=== PATIENT | female | born 1980 | race Caucasian/White ===

== ENCOUNTER 2016-08-10 01:14 | Emergency (ER) | payer OTHER ==
--- NOTE | 2016-08-10 05:10 | ED MAR SUMMARY ---
..... Medication Administration Record [facility] [address] [place], [place] [id number] Patient: LUIS ANTONIO Homar Visit ID: [id number] 35y, F Weight: 63.5 kg Height/Length: 64 in BMI: 24 ALLERGIES: No Known Drug Allergy
--- NOTE | 2016-08-10 05:10 | ED NURSING NOTES ---
Clinical Report - Nurses [facility] [address] [place] [address] 08/10/2016 1:14 Patient: LUIS ANTONIO TRIAGE Triage time 01:Aug 10 2016. Acuity: LEVEL 4. Chief Complaint: laceration. --01:32 Souleymane Bhatia R.N. 01:29 08/10/16. BP: 113/75. HR: 79. RR: 18. O2 saturation: 100%. Temp: 98.5 F. Pain level now 0/10. --01:32 Souleymane Bhatia R.N. Weight: 63.5 kg stated. Height/Length: 64 inches Per Patient. BMI: 24. --01:30 Souleymane Bhatia R.N. Medications Iron Oral. --01:30 Souleymane Bhatia R.N. Allergies No Known Drug Allergy. --01:30 Souleymane Bhatia R.N. History ( Pt was cutting" food" with a knife slipped and cut wrist. No suicidal ideation, tetanus is up to date.). Reported as (R wrist). PAST MEDICAL HX: Immunizations: up-to-date. SOCIAL HX: Light tobacco smoker. No alcohol use or drug use. --01:32 Souleymane Bhatia R.N. ADDITIONAL SURGERIES: Tubal Ligation. --01:31 Souleymane Bhatia R.N. Interventions ID band on patient. To treatment room. --01:32 Souleymane Bhatia R.N. DISPOSITION / DISCHARGE Departure time: 0253. No learning barriers present. Discharge instructions provided and reviewed with the patient. Patient verbalized understanding. Written instructions provided in Somali. The patient was discharged by the physician. She was discharged home and accompanied by oncology navigator. She left the Emergency Department ambulatory and via private vehicle. Family member driving. ( Pt ambulated on discharge, steady on her feet verbalized understanding of discharge instructions and follow up care. wound clean and bacitracin placed with clean dressing). --03:26 Souleymane Bhatia R.N. 03:24 08/10/16. BP: 138/66. HR: 88. RR: 18. O2 saturation: 99%. Temp: 98.3 F. Pain level now 07/24. --03:26 Souleymane Bhatia R.N. Locked/Released at 08/10/2016 4:55 by Souleymane Bhatia R.N.
--- NOTE | 2016-08-10 05:10 | ED DISCHARGE INSTRUCTIONS ---
Patient: LUIS ANTONIO General Instructions [facility] VisitID: [id number] [place] [address] 35y, F Registration Date/Time: 08/10/2016 Single superficial laceration to the right hand. (Not requiring sutures). No foreign body present. INSTRUCTIONS Protect wound and keep wound area clean. Change dressing twice daily. You may wash wounds briefly, then dry. Apply bacitracin twice daily. Your Current Medications: CONTINUE TAKING THE FOLLOWING MEDICATIONS: Iron Oral. Follow-up: Follow up with your doctor in about four days. Call for an appointment. Screening today revealed the patient's blood pressure to be in the normal range. ADDITIONAL INFORMATION Laceration (All Closures) Alaceration is a cut through the skin. This will usually require stitches (sutures) or washington if it is deep. Minor cuts may be treated with a surgical tape closure orskin glue. Home care The following guidelines will help you care for your laceration at home: Extremity, face, or trunk wounds Keep the wound clean and dry. If a bandage was applied and it becomes wet or dirty, replace it. Otherwise, leave it in place for the first 24 hours. If stitches or washington were used, clean the wound daily. After removing the bandage, wash the area with soap and water. Use a wet cotton swab to loosen and remove any blood or crust that forms. The doctor may prescribe an antibiotic cream or ointment to prevent infection. Do not stop taking this medication until you have finished the prescribed course or the doctor tells you to stop. The doctor may also prescribe medications for pain. Follow the doctors instructions for taking these medications. You may remove the bandage to shower as usual after the first 24 hours, but do not soak the area in water (no swimming) until the stitches or washington are removed. If surgical tape was used, keep the area clean and dry. If it becomes wet, blot it dry with a towel. If skin glue was used, do not scratch, rub, or pick at the adhesive film. Do not place tape directly over the film. Do not apply liquid, ointment, or creams to the wound while the film is in place. Do not clean the wound with peroxide and do not apply ointments. Avoid activities that cause heavy sweating until the film has fallen off. Protect the wound from prolonged exposure to sunlight or tanning lamps. You may shower as usual but do not soak the wound in water (no baths or swimming). The film will fall off by itself in 510 days. Scalp wounds During the first two days, you may carefully rinse your hair in the shower to remove blood, glass or dirt particles. After two days, you may shower and shampoo your hair normally. Do not soak your scalp in the tub or go swimming until the stitches or washington have been removed. Talk with your doctor before applying any antibiotic ointment to the wound. Mouth wounds Eat soft foods to reduce pain. If the cut is inside of your mouth, clean by rinsing after each meal and at bedtime with a mixture of equal parts water and hydrogen peroxide (do not swallow!). Or, you can use a cotton swab to directly apply hydrogen peroxide onto the cut. Mouth wounds can be painful when eating. You may use an [id number] local numbing solution for pain relief. If this is not available, you may use any numbing solution for teething babies. You may apply this directly to the sores with a cotton-tip swab or with your finger. Follow-up care Follow up with your health care provider. Most skin wounds heal within ten days. Mouth and facial wounds heal within five days. However, even with proper treatment, a wound infection may sometimes occur. Therefore, you should check the wound daily for signs of infection listed below. Stitches should be removed from the face within five days; stitches and washington should be removed from other parts of the body within 714 days. If dissolving stitches were used in the mouth, these will fall out or dissolve without the need for removal. If tape closures were used, remove them yourself if they have not fallen off after 7 days. Ifskin glue was used, the film will fall off by itself in 510 days. When to seek medical care Get prompt medical attention if any of these occur: Bleeding not controlled by direct pressure Signs of infection, including increasing pain in the wound, increasing wound redness or swelling, or pus coming from the wound Fever of 100.4F (38C) or higher, or as directed by your health care provider Stitches or washington come apart or fall out or surgical tape falls off before 7 days Wound edges re-open Bandage Change If the bandage becomes wet or dirty, replace it. Otherwise, leave it in place for the first 24 hours. Then once a day: After removing the bandage, wash the area with soap and water. Use a wet cotton swab to loosen and remove any blood or crust that forms on the wound. After cleaning, apply a thin layer of antibiotic ointment or cream. Reapply the bandage. You may shower as usual after the first 24 hours. If the bandage is on an arm or leg, cover it with a plastic bag rubber banded at both ends before showering. No tub baths or swimming until the bandage is removed and the wound healed (at least 7 days). You have been given the following additional information: Laceration, All Dressing Change (Electronically signed by Irvin Main Dr. 08/10/2016 5:10)
--- NOTE | 2016-08-10 05:10 | ED MED RECONCILIATION SUMMARY ---
Patient: LUIS ANTONIO Medication Reconciliation Report [facility] VisitID: [id number] [address] [place] [address] 35y, F Registration Date/Time: 08/10/2016 Weight: 63.5 kg Height/Length: 64 in. BMI: 24.0 ALLERGIES: No Known Drug Allergy The patient's Home Medications are listed below: CONTINUE TAKING THE FOLLOWING MEDICATIONS: Iron Oral The source(s) of the original Home Medication information: Not obtained. The following Medications were given to the patient in the Emergency Department: None. The following Medications were prescribed to the patient: None.
--- NOTE | 2016-08-10 05:10 | ED MED RECONCILIATION SUMMARY ---
Patient: LUIS ANTONIO Medication Reconciliation Report [facility] VisitID: [id number] [address] [place] [address] 35y, F Registration Date/Time: 08/10/2016 Weight: 63.5 kg Height/Length: 64 in. BMI: 24.0 ALLERGIES: No Known Drug Allergy The patient's Home Medications are listed below: CONTINUE TAKING THE FOLLOWING MEDICATIONS: Iron Oral The source(s) of the original Home Medication information: Not obtained. The following Medications were given to the patient in the Emergency Department: None. The following Medications were prescribed to the patient: None.
--- NOTE | 2016-08-10 05:10 | ED CLINICAL REPORT ---
Clinical Report - Physicians/Mid Levels [facility] [address] [place] [address] 08/10/2016 1:14 Patient: LUIS ANTONIO Time Seen: 01:45; initial patient contact. Arrived- By private vehicle. Historian- patient. HISTORY OF PRESENT ILLNESS Chief Complaint: Injury to the right hand. The injury happened just prior to arrival. Occurred at home. The patient sustained a laceration from a knife. Patient is experiencing mild pain. Patient denies injury to the head or neck. REVIEW OF SYSTEMS The patient sustained a laceration. No swelling, tingling, numbness or foreign body. All systems otherwise negative, except as recorded above. PAST HISTORY Anemia. Tetanus immunization status is up-to-date. Surgeries: Tubal ligation. Medications: Iron Oral. Allergies: No Known Drug Allergy. SOCIAL HISTORY Current every day smoker. No alcohol use or drug use. ADDITIONAL NOTES The nursing notes have been reviewed with agreement regarding the chief complaint, PMH and patient medications and allergies. PHYSICAL EXAM Vital Signs: 08/10/2016 01:29 BP: 113/75. HR: 79. RR: 18. O2 saturation: 100%. Temp: 98.5 F. Have been reviewed as normal. Appearance: Alert. Oriented X3. Skin: Single small, superficial, flap 2.0 cm laceration to right hand; No active bleeding. Extremities: Dorsal right hand: superficial 1.5 cm laceration of the central aspect of the dorsal hand. No wrist injury. Hand and wrist exam otherwise negative. Neuro, Vascular and Tendons: Vascular status intact. Sensation intact. Motor intact. Tendon function intact. Neuro: Oriented X 3. No motor deficit. No sensory deficit. PROGRESS AND PROCEDURES Disposition: Discharged home in good condition. Condition: good. CLINICAL IMPRESSION Single superficial laceration to the right hand. (Not requiring sutures). No foreign body present. INSTRUCTIONS Protect wound and keep wound area clean. Change dressing twice daily. You may wash wounds briefly, then dry. Apply bacitracin twice daily. Your Current Medications: CONTINUE TAKING THE FOLLOWING MEDICATIONS: Iron Oral. Follow-up: Follow up with your doctor in about four days. Call for an appointment. Screening today revealed the patient's blood pressure to be in the normal range. (Electronically signed by Irvin Main Dr. 08/10/2016 5:10)
--- NOTE | 2016-08-10 05:10 | ED MAR SUMMARY ---
..... Medication Administration Record [facility] [address] [place], [place] [id number] Patient: LUIS ANTONIO Homar Visit ID: [id number] 35y, F Weight: 63.5 kg Height/Length: 64 in BMI: 24 ALLERGIES: No Known Drug Allergy
--- NOTE | 2016-08-10 05:10 | ED NURSING NOTES ---
Clinical Report - Nurses [facility] [address] [place] [address] 08/10/2016 1:14 Patient: LUIS ANTONIO TRIAGE Triage time 01:Aug 10 2016. Acuity: LEVEL 4. Chief Complaint: laceration. --01:32 Souleymane Bhatia R.N. 01:29 08/10/16. BP: 113/75. HR: 79. RR: 18. O2 saturation: 100%. Temp: 98.5 F. Pain level now 0/10. --01:32 Souleymane Bhatia R.N. Weight: 63.5 kg stated. Height/Length: 64 inches Per Patient. BMI: 24. --01:30 Souleymane Bhatia R.N. Medications Iron Oral. --01:30 Souleymane Bhatia R.N. Allergies No Known Drug Allergy. --01:30 Souleymane Bhatia R.N. History ( Pt was cutting" food" with a knife slipped and cut wrist. No suicidal ideation, tetanus is up to date.). Reported as (R wrist). PAST MEDICAL HX: Immunizations: up-to-date. SOCIAL HX: Light tobacco smoker. No alcohol use or drug use. --01:32 Souleymane Bhatia R.N. ADDITIONAL SURGERIES: Tubal Ligation. --01:31 Souleymane Bhatia R.N. Interventions ID band on patient. To treatment room. --01:32 Souleymane Bhatia R.N. DISPOSITION / DISCHARGE Departure time: 0253. No learning barriers present. Discharge instructions provided and reviewed with the patient. Patient verbalized understanding. Written instructions provided in Trinidadian. The patient was discharged by the physician. She was discharged home and accompanied by license and permit specialist. She left the Emergency Department ambulatory and via private vehicle. Family member driving. ( Pt ambulated on discharge, steady on her feet verbalized understanding of discharge instructions and follow up care. wound clean and bacitracin placed with clean dressing). --03:26 Souleymane Bhatia R.N. 03:24 08/10/16. BP: 138/66. HR: 88. RR: 18. O2 saturation: 99%. Temp: 98.3 F. Pain level now 07/24. --03:26 Souleymane Bhatia R.N. Locked/Released at 08/10/2016 4:55 by Souleymane Bhatia R.N.
--- NOTE | 2016-08-10 05:10 | ED CLINICAL REPORT ---
Clinical Report - Physicians/Mid Levels [facility] [address] [place] [place] [address] 08/10/2016 1:14 Patient: LUIS ANTONIO Time Seen: 01:45; initial patient contact. Arrived- By private vehicle. Historian- patient. HISTORY OF PRESENT ILLNESS Chief Complaint: Injury to the right hand. The injury happened just prior to arrival. Occurred at home. The patient sustained a laceration from a knife. Patient is experiencing mild pain. Patient denies injury to the head or neck. REVIEW OF SYSTEMS The patient sustained a laceration. No swelling, tingling, numbness or foreign body. All systems otherwise negative, except as recorded above. PAST HISTORY Anemia. Tetanus immunization status is up-to-date. Surgeries: Tubal ligation. Medications: Iron Oral. Allergies: No Known Drug Allergy. SOCIAL HISTORY Current every day smoker. No alcohol use or drug use. ADDITIONAL NOTES The nursing notes have been reviewed with agreement regarding the chief complaint, PMH and patient medications and allergies. PHYSICAL EXAM Vital Signs: 08/10/2016 01:29 BP: 113/75. HR: 79. RR: 18. O2 saturation: 100%. Temp: 98.5 F. Have been reviewed as normal. Appearance: Alert. Oriented X3. Skin: Single small, superficial, flap 2.0 cm laceration to right hand; No active bleeding. Extremities: Dorsal right hand: superficial 1.5 cm laceration of the central aspect of the dorsal hand. No wrist injury. Hand and wrist exam otherwise negative. Neuro, Vascular and Tendons: Vascular status intact. Sensation intact. Motor intact. Tendon function intact. Neuro: Oriented X 3. No motor deficit. No sensory deficit. PROGRESS AND PROCEDURES Disposition: Discharged home in good condition. Condition: good. CLINICAL IMPRESSION Single superficial laceration to the right hand. (Not requiring sutures). No foreign body present. INSTRUCTIONS Protect wound and keep wound area clean. Change dressing twice daily. You may wash wounds briefly, then dry. Apply bacitracin twice daily. Your Current Medications: CONTINUE TAKING THE FOLLOWING MEDICATIONS: Iron Oral. Follow-up: Follow up with your doctor in about four days. Call for an appointment. Screening today revealed the patient's blood pressure to be in the normal range. (Electronically signed by Irvin Main Dr. 08/10/2016 5:10)
== END 2016-08-10 02:53 | disposition home or self-care (01) ==
LOC: ED SRH 01:14
DX: S61.411A Laceration without foreign body of right hand, initial encounter (principal); W26.0XXA Contact with knife, initial encounter; Y93.G1 Activity, food preparation and clean up; Y92.009 Unspecified place in unspecified non-institutional (private) residence as the place of occurrence of the external cause; Y99.9 Unspecified external cause status